=== PATIENT | male | born 1940 | race Caucasian/White ===

== ENCOUNTER → 2017-11-12 | Day surgery (SDC) | payer OTHER ==
[2017-11-06 08:02] VITALS: Ht 172.7 cm; Wt 86.4 kg
[~2017-11-12] VITALS: Ht 172.7 cm; Wt 86.4 kg
[~2017-11-12] MED LIST: 500ML BSS 0.3ML EPI 1:1000PF IRRIG ONE; ACETAMINOPHEN 325 MG TAB PO PRN; AMVISC PLUS 0.8ML SYRINGE INT OCU ONE; ASPI81TA28 PO; ATOR-22 PO; ATROPINE SULFATE 0.1 MG/ML 5ML SYR IV PRN; AcetaZOLAMIDE 250 MG TAB PO SCH; BETAXOLOL HCL 0.25% OP SUSP PER DROP CHARGE OPL SCH; BRIMONIDINE TART 0.2% OP SOLN PER DROP CHARGE ONE; BSS FLUSH ONE; DILT-113 PO; EpHEDrine SULFATE INJ 50 MG/ML AMP IV PRN; EpINEphrine INJ 1MG/ML AMP 1 MG/ML AMP ONE; LACTATED RINGER'S 1000ML 500 ML IV SCH; LIDOCAINE 4% OP SOLN DROP CHARGE ONE; LIDOCAINE 4% OP SOLN DROP CHARGE OPL SCH; LIDOCAINE HCL 1% MPF 2 ML VIAL ONE; METO5TAB2 PO; MIDAZOLAM HCL 1 MG/ML 2ML VIAL ONE; MIX: 4ML BSS 1ML EPI 1:1000 PF INSTIL ONE; MOXIFLOXACIN OPH SOLN PER DROP CHARGE ONE; NURSING VERBAL MED ORDER ONE; PHENYLEPHRINE HCL 10% OP SOLN PER DROP CHARGE OPL STA; POVIDONE-IODINE OP SOLN 30 ML BTL ONE; PRLSR20 PO; PROPARACAINE 0.5% OP SOLN PER DROP CHARGE OPL SCH; TOBRAMYCIN/DEXAMETHASONE OPH OINT PER APPLN CHARGE ONE
--- NOTE | 2017-11-12 07:24 | History & Physical Bridge - SC ---
H&P Re-Evaluation Bridge Note: I have examined the patient, reviewed the History & Physical and in the interval since the performance of the History & Physical I have noted the following changes of clinical significance: No changes noted
[2017-11-12] MEDS: PHENYLEPHRINE HCL 2.5% OP SOLN PER DROP CHARGE OPL SCH ×2 (09:24→09:29)
[2017-11-12] MEDS: TROPICAMIDE 1% OP SOLN PER DROP CHARGE OPL SCH ×2 (09:25→09:30)
[2017-11-12] MEDS: CYCLOPENTOLATE HCL 1% OP SOLN PER DROP CHARGE OPL SCH ×2 (09:26→09:31)
[2017-11-12] MEDS: MOXIFLOXACIN OPH SOLN PER DROP CHARGE OPL SCH ×2 (09:27→09:37)
--- NOTE | 2017-11-12 10:37 | [facility] Operative Report ---
Operative Report Date of Service November 12, 2017. Operative Report 1. PREOPERATIVE DIAGNOSIS: Senile nuclear cataract, left eye. 2. POSTOPERATIVE DIAGNOSIS: Senile nuclear cataract, left eye. 3. PROCEDURE: Phacoemulsification of left cataract with posterior chamber lens implant, type Bausch [employer] Lomb, model MX60E, power +21.0 diopters. ANESTHESIA: Local standby. SURGEON: Dr. Brar. COMPLICATIONS: None. OPERATING TIME: 10 minutes. 4. OPERATION AND FINDINGS: DESCRIPTION OF PROCEDURE: The left pupil was dilated. The anesthetic was administered using a topical technique. The left eye was prepped and draped. A speculum was placed. A clear corneal incision was formed. The chamber was filled with Amvisc Plus and Endocoat. Epinephrine solution was used. A paracentesis was placed. A capsulorrhexis was performed. The nucleus was hydrodissected. A dense lens was removed with phacoemulsification. Time was 7.76 seconds. The aspiration unit was used to remove the cortex. The capsule was filled with Amvisc Plus. The lens implant was folded and placed into the capsule. The incision was hydrated. The Amvisc was aspirated. The wound was secure. The chamber was deep. The pupil was round. Brimonidine, TobraDex ointment and Vigamox solution were placed. The speculum was removed. The patient was returned to the Recovery Room in stable condition. I attest to the content of the Intraoperative Record and any orders documented therein. Any exceptions are noted below. The scribe's documentation has been prepared in my presence, under my direction and personally reviewed by me in its entirety. I confirm that the note above accurately reflects all work, treatment, procedures, and medical decision making performed by me. I personally scribed for Robert Brar M.D. (MICAH) on 11/12/17 at 10:37. Electronically submitted by Nora Alonso (STEPH).
--- NOTE | 2017-11-12 10:40 | Discharge Instructions-SurgCtr ---
Discharge Instructions Date of Service November 12, 2017. Visit Reason for Visit: Cataract Left Eye Discharge Discharge Diagnosis / Problem: lens implant left eye Discharge Goals Goal(s): Improve function Activity Recommendations Activity Limitations: resume your previous activity Lifting Limitations: no more than 10 pounds Exercise/Sports Limitations: gradually increase as tolerated May Resume Sexual Activity: when tolerated Shower/Bathe: tomorrow Driving or Machine Use: resume 1 day after discharge Anesthesia . Post Anesthesia Instructions: If you have had General Anesthesia or IV Sedation: * Do not drive today. * Resume driving when surgeon permits. * Do not make important decisions or sign legal documents today. * Call surgeon for: 1. Temperature elevations greater than 101 degrees F. 2. Uncontrollable pain. 3. Excessive bleeding. 4. Persistent nausea and vomiting. 5. Medication intolerance (nausea, vomiting or rash). * For nausea and vomiting use only clear liquids such as: tea, soda, bouillon until nausea subsides, then gradually increase diet as tolerated. * If you have any concerns or questions, call your surgeon's office. If physician is unavailable and it is an emergency, call 911 or go to the nearest emergency room. . Instructions / Follow-Up Instructions / Follow-Up ACTIVITY RECOMMENDATIONS: * Light activities. * Mild irritation and blurred vision are common for the first few days. * You may walk outside, read, watch television. * Redness around the white part of the eye is common. MEDICATIONS: Resume previous medications unless instructed otherwise by your surgeon. * Take white Diamox (Acetazolamide) tablet at 1 pm today. Start all eye drops at 1 pm today: * Eye drops (today and tomorrow): Prednisone - one drop in operative eye every 3 hours while awake Ofloxacin - one drop in operative eye every 3 hours while awake SPECIAL CARE INSTRUCTIONS: * Tape plastic shield over eye to sleep at night. Call your doctor at with any concerns or problems. FOLLOW UP VISIT: Follow-up with Dr Brar at [facility] as scheduled. Diet Recommendations Home Diet: no limitations Procedures Procedures Performed: Left Cataract Phacoemulsification With Intraocular Lens Implant Pending Studies Studies pending at discharge: no Medical Emergencies . Who to Call and When: Medical Emergencies: If at any time you feel your situation is an emergency, please call 911 immediately. . Non-Emergent Contact Non-Emergency issues call your: Radio Repairman Call Non-Emergent contact if: your pain is not controlled [phone] . . "Provider Documentation" section prepared by Robert Brar. .
[2017-11-12 10:41] VITALS: TEMP 36.3
[2017-11-12 11:14] VITALS: BP 130/83; PULSE 67; O2SAT 95
--- NOTE | 2017-11-12 11:19 | Anesthesia Progress Nt - [facility] ---
Anesthesia Post Op Note Date & Time November 12, 2017 at 11:18 Vital Signs Pain Intensity: 3.0 Vital Signs Past 12 Hours Date Time Temp Pulse Resp B/P (MAP) Pulse Ox O2 Delivery O2 Flow Rate FiO2 11/12/17 11:14 67 18 130/83 (99) 95 Room Air 11/12/17 10:41 36.3 60 18 118/69 (85) 95 Room Air 11/12/17 09:25 36.7 60 12 169/73 (105) 95 Room Air Notes Mental Status: alert / awake / arousable, participated in evaluation Pt Amnestic to Procedure: Yes Nausea / Vomiting: adequately controlled Pain: adequately controlled Airway Patency, RR, SpO2: stable & adequate BP & HR: stable & adequate Hydration State: stable & adequate Anesthetic Complications: no major complications apparent
== END | disposition home or self-care (01) ==
LOC: X.SURG 08:35
PROVIDERS: ATTEND Specialist
DX: H25.12 Age-related nuclear cataract, left eye (principal); Z79.82 Long term (current) use of aspirin; Z79.899 Other long term (current) drug therapy; E66.9 Obesity, unspecified; Z68.34 Body mass index [BMI] 34.0-34.9, adult; E78.5 Hyperlipidemia, unspecified; Z95.0 Presence of cardiac pacemaker

== ENCOUNTER → 2017-11-26 | Day surgery (SDC) | payer OTHER ==
[2017-11-21 08:45] VITALS: Ht 172.7 cm; Wt 86.4 kg
[~2017-11-26] VITALS: Ht 172.7 cm; Wt 86.4 kg
[~2017-11-26] MED LIST changes: -BETAXOLOL HCL 0.25% OP SUSP PER DROP CHARGE OPL SCH; +BETAXOLOL HCL 0.25% OP SUSP PER DROP CHARGE OPR SCH; +ENDOCOAT 0.85ML SYRINGE INT OCU ONE; -EpHEDrine SULFATE INJ 50 MG/ML AMP IV PRN; -LIDOCAINE 4% OP SOLN DROP CHARGE OPL SCH; +LIDOCAINE 4% OP SOLN DROP CHARGE OPR SCH; -NURSING VERBAL MED ORDER ONE; -PHENYLEPHRINE HCL 10% OP SOLN PER DROP CHARGE OPL STA; -PROPARACAINE 0.5% OP SOLN PER DROP CHARGE OPL SCH; +PROPARACAINE 0.5% OP SOLN PER DROP CHARGE OPR SCH
[2017-11-26] MEDS: PHENYLEPHRINE HCL 2.5% OP SOLN PER DROP CHARGE OPR SCH ×2 (06:46→06:51)
[2017-11-26] MEDS: TROPICAMIDE 1% OP SOLN PER DROP CHARGE OPR SCH ×2 (06:47→06:52)
[2017-11-26] MEDS: CYCLOPENTOLATE HCL 1% OP SOLN PER DROP CHARGE OPR SCH ×2 (06:48→06:53)
[2017-11-26] MEDS: MOXIFLOXACIN OPH SOLN PER DROP CHARGE OPR SCH ×2 (06:49→06:59)
--- NOTE | 2017-11-26 08:05 | [facility] Operative Report ---
Operative Report Date of Service November 26, 2017. Operative Report 1. PREOPERATIVE DIAGNOSIS: Senile nuclear cataract, right eye. 2. POSTOPERATIVE DIAGNOSIS: Senile nuclear cataract, right eye. 3. PROCEDURE: Phacoemulsification of right cataract with posterior chamber lens implant, type Bausch [employer] Lomb, model MX60E, power +21.5 diopters. ANESTHESIA: Local standby. SURGEON: Dr. Brar. COMPLICATIONS: None. OPERATING TIME: 10 minutes. 4. OPERATION AND FINDINGS: DESCRIPTION OF PROCEDURE: The right pupil was dilated. The anesthetic was administered using a topical technique. The right eye was prepped and draped. A speculum was placed. A clear corneal incision was formed. The chamber was filled with Amvisc Plus and Endocoat. Epinephrine solution was used. A paracentesis was placed. A capsulorrhexis was performed. The nucleus was hydrodissected. The lens was removed with phacoemulsification. Time was 5.08 seconds. The aspiration unit was used to remove the cortex. The capsule was filled with Amvisc Plus. The lens implant was folded and placed into the capsule. The incision was hydrated. The Amvisc was aspirated. The wound was secure. The chamber was deep. The pupil was round. Brimonidine, TobraDex ointment and Vigamox solution were placed. The speculum was removed. The patient was returned to the Recovery Room in stable condition. I attest to the content of the Intraoperative Record and any orders documented therein. Any exceptions are noted below. The scribe's documentation has been prepared in my presence, under my direction and personally reviewed by me in its entirety. I confirm that the note above accurately reflects all work, treatment, procedures, and medical decision making performed by me. I personally scribed for Robert Brar M.D. (MICAH) on 11/26/17 at 08:05. Electronically submitted by Nora Alonso (STEPH).
--- NOTE | 2017-11-26 08:07 | Discharge Instructions-SurgCtr ---
Discharge Instructions Date of Service November 26, 2017. Visit Reason for Visit: Right Cataract Discharge Discharge Diagnosis / Problem: lens implant right eye Discharge Goals Goal(s): Improve function Activity Recommendations Activity Limitations: resume your previous activity Lifting Limitations: no more than 10 pounds Exercise/Sports Limitations: gradually increase as tolerated May Resume Sexual Activity: when tolerated Shower/Bathe: tomorrow Driving or Machine Use: resume 1 day after discharge Anesthesia . Post Anesthesia Instructions: If you have had General Anesthesia or IV Sedation: * Do not drive today. * Resume driving when surgeon permits. * Do not make important decisions or sign legal documents today. * Call surgeon for: 1. Temperature elevations greater than 101 degrees F. 2. Uncontrollable pain. 3. Excessive bleeding. 4. Persistent nausea and vomiting. 5. Medication intolerance (nausea, vomiting or rash). * For nausea and vomiting use only clear liquids such as: tea, soda, bouillon until nausea subsides, then gradually increase diet as tolerated. * If you have any concerns or questions, call your surgeon's office. If physician is unavailable and it is an emergency, call 911 or go to the nearest emergency room. . Instructions / Follow-Up Instructions / Follow-Up ACTIVITY RECOMMENDATIONS: * Light activities. * Mild irritation and blurred vision are common for the first few days. * You may walk outside, read, watch television. * Redness around the white part of the eye is common. MEDICATIONS: Resume previous medications unless instructed otherwise by your surgeon. * Take white Diamox (Acetazolamide) tablet at 1 pm today. Start all eye drops at 1 pm today: * Eye drops (today and tomorrow): Prednisone - one drop in operative eye every 3 hours while awake Ofloxacin - one drop in operative eye every 3 hours while awake SPECIAL CARE INSTRUCTIONS: * Tape plastic shield over eye to sleep at night. Call your doctor at with any concerns or problems. FOLLOW UP VISIT: Follow-up with Dr Brar at [place] office as scheduled. Diet Recommendations Home Diet: no limitations Procedures Procedures Performed: Right Cataract Phacoemulsification With Intraocular Lens Implant Pending Studies Studies pending at discharge: no Medical Emergencies . Who to Call and When: Medical Emergencies: If at any time you feel your situation is an emergency, please call 911 immediately. . Non-Emergent Contact Non-Emergency issues call your: Missile Inspector [employer]light Call Non-Emergent contact if: your pain is not controlled [phone] . . "Provider Documentation" section prepared by Robert Brar. .
[2017-11-26 08:09] VITALS: TEMP 36.2
--- NOTE | 2017-11-26 08:21 | Anesthesia Progress Nt - [facility] ---
Anesthesia Post Op Note Date & Time November 26, 2017 at 08:21 Vital Signs Pain Intensity: 3.0 Vital Signs Past 12 Hours Date Time Temp Pulse Resp B/P (MAP) Pulse Ox O2 Delivery O2 Flow Rate FiO2 11/26/17 08:09 36.2 60 20 126/83 (97) 97 Room Air 11/26/17 06:36 36.5 80 20 136/85 (102) 95 Room Air Notes Mental Status: alert / awake / arousable, participated in evaluation Pt Amnestic to Procedure: Yes Nausea / Vomiting: adequately controlled Pain: adequately controlled Airway Patency, RR, SpO2: stable & adequate BP & HR: stable & adequate Hydration State: stable & adequate Anesthetic Complications: no major complications apparent
[2017-11-26 08:29] VITALS: BP 126/82; PULSE 72; O2SAT 96
== END | disposition home or self-care (01) ==
LOC: X.SURG 06:24
PROVIDERS: ATTEND Specialist
DX: H25.11 Age-related nuclear cataract, right eye (principal); I51.9 Heart disease, unspecified

== ENCOUNTER 2018-02-18 01:41 | Inpatient (IN) | payer OTHER ==
[~2018-02-18] VITALS: Ht 172.7 cm; Wt 84.9 kg
[2018-02-18] VITALS (9 sets, daily range): BP systolic 127–169; BP diastolic 56–98; PULSE 60–63; TEMP 36.5–36.9; O2SAT 93–98; Ht 172.7 cm; Wt 84.9 kg
[~2018-02-18 01:41] MED LIST changes: -500ML BSS 0.3ML EPI 1:1000PF IRRIG ONE; -ACETAMINOPHEN 325 MG TAB PO PRN; -AMVISC PLUS 0.8ML SYRINGE INT OCU ONE; -ATROPINE SULFATE 0.1 MG/ML 5ML SYR IV PRN; -AcetaZOLAMIDE 250 MG TAB PO SCH; -BETAXOLOL HCL 0.25% OP SUSP PER DROP CHARGE OPR SCH; -BRIMONIDINE TART 0.2% OP SOLN PER DROP CHARGE ONE; -BSS FLUSH ONE; -ENDOCOAT 0.85ML SYRINGE INT OCU ONE; -EpINEphrine INJ 1MG/ML AMP 1 MG/ML AMP ONE; -LACTATED RINGER'S 1000ML 500 ML IV SCH; -LIDOCAINE 4% OP SOLN DROP CHARGE ONE; -LIDOCAINE 4% OP SOLN DROP CHARGE OPR SCH; -LIDOCAINE HCL 1% MPF 2 ML VIAL ONE; -MIDAZOLAM HCL 1 MG/ML 2ML VIAL ONE; -MIX: 4ML BSS 1ML EPI 1:1000 PF INSTIL ONE; -MOXIFLOXACIN OPH SOLN PER DROP CHARGE ONE; -POVIDONE-IODINE OP SOLN 30 ML BTL ONE; -PROPARACAINE 0.5% OP SOLN PER DROP CHARGE OPR SCH; -TOBRAMYCIN/DEXAMETHASONE OPH OINT PER APPLN CHARGE ONE
[2018-02-18] MEDS ORDERED: SODIUM CHLORIDE 0.9% 1000ML 1,000 ML IV STA (02:02)
[2018-02-18] MEDS ORDERED: FENTANYL CITRATE INJ 50 MCG/1 ML 2 ML VIAL IV STA (02:02)
[2018-02-18] MEDS ORDERED: ONDANSETRON INJ 2 MG/ML 2 ML VIAL IV STA (02:02)
--- NOTE | 2018-02-18 02:10 | EMERGENCY ROOM VISIT NOTE ---
History Report prepared by Sofia: Subhash Tabares Under the Supervision of: Dr. Mike Simpson M.D. First contact with patient: 01:53 Chief Complaint: ABDOMINAL PAIN Stated Complaint: PAIN IN STOMACH,VOMITING Nursing Triage Summary: patient reports abdominal pain that started tonight with nausea and vomiting History of Present Illness The patient is a 78 year old male who presents to the Emergency Room with complaints of worsening, sharp, lower abdominal pain beginning 6 hours ago. The patient states his symptoms started this evening after eating dinner. He reports he feels very warm. The patient notes he became nauseous and vomited up his supper. He states he tried taking TUMs, but it did not help him. The patient reports his pain does not radiate to his back. He notes he has a history of a pacemaker and takes aspirin daily. 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 He denies a history of pain this bad before, a history of pancreatitis, consuming alcohol, abdominal surgeries, chest pain, shortness of breath, trouble moving his bowels or urinating, leg swelling, a history of kidney trouble, taking Coumadin, recent falls, LOC, headache, a history of an VT, drug use, and recent tick bites. Source of History: patient Onset: 6 hours ago Position: abdomen (lower) Quality: sharp Timing: worsening Associated Symptoms: + nausea, + vomiting, No LOC, No headache, No chest pain, No SOB, No urinary symptoms Note: Associated symptoms: feeling warm Denies: recent tick bites, recent falls, leg swelling, trouble moving bowels, Review of Systems See HPI for pertinent positives & negatives. A total of 10 systems reviewed and were otherwise negative. Past Medical & Surgical Medical Problems: (1) Cholecystitis (2) CKD (chronic kidney disease) stage 3, GFR 30-59 ml/min (3) Elevated LFTs (4) Gastroparesis (5) GERD (gastroesophageal reflux disease) (6) Pacemaker (7) SSS (sick sinus syndrome) Surgical Problems: (1) S/P cholecystectomy Family History Diabetes mellitus Social History Smoking Status: Never Smoker Alcohol Use: none Drug Use: none Marital Status: Housing Status: lives with family Occupation Status: retired Current/Historical Medications Scheduled Aspirin (Aspirin Ec), 81 MG PO QAM Atorvastatin (Lipitor), 20 MG PO HS Diltiazem Hcl Ext Rel (Tiazac), 180 MG PO QAM Metoclopramide Hcl (Metoclopramide Hcl), 1 TAB PO DAILY AFTERNOON Omeprazole (Prilosec), 20 MG PO QAM Allergies Coded Allergies: BEE STING (Unverified Allergy, Unknown, HIVES, 02/18/18) Oxycodone (Unverified Adverse Reaction, Severe, URINE RETENTION, 02/18/18) Physical Exam Vital Signs Date Time Temp Pulse Resp B/P (MAP) Pulse Ox O2 Delivery O2 Flow Rate FiO2 02/18/18 04:37 65 20 148/90 98 Room Air 02/18/18 03:02 60 18 137/100 95 Room Air 02/18/18 01:45 36.7 65 18 178/81 95 Room Air Physical Exam GENERAL: Patient is uncomfortable appearing and in moderate distress. EYES: No scleral icterus, unremarkable pupils. ENT: Mucous membranes moist, no nasal congestion. NECK: No masses appreciated, no meningismus, trachea is midline. RESPIRATORY: No dyspnea. Clear to auscultation and equal bilaterally. No wheeze , no rhonchi. CARDIOVASCULAR: Regular rate and rhythm. No murmurs, rubs, gallops appreciated. GASTROINTESTINAL: Abdomen soft, periumbilical tenderness to palpation, no peritonitis. Bowel sounds positive. No masses appreciated. BACK: No midline tenderness, no CVA tenderness EXTREMITIES: Normal motion all extremities, no cyanosis, no edema. NEUROLOGIC: Alert and oriented, no acute motor or sensory deficits, no focal weakness, cranial nerves grossly intact. SKIN: No rash, no jaundice, no diaphoresis. Medical Decision & Procedures ER Provider Diagnostic Interpretation: Stat Rad Radiology results and stated below per my review and radiologist interpretation: CT ABDOMEN & PELVIS With Contrast: Cholelithiasis with possible slight gallbladder wall thickening. If there is concern for cholecystitis, ultrasound evaluation may be beneficial. Colonic diverticulosis. Mild wall thickening at the sigmoid level though without evidence for pericolonic inflammatory changes, possibly related to chronic diverticulosis and/or peristalsis. No definitive evidence for acute diverticulitis. There is also slight wall thickening at the splenic flexure favored to be related to contraction. There is no evidence for bowel obstruction. There is no evidence for appendicitis. No evidence for obstructive uropathy. Small hiatal hernia. Mild atherosclerosis. Small fatty left inguinal hernia. Radiologist: Jaswinder Chavez MD Laboratory Results Test 02/18/18 02:33 02/18/18 02:54 02/18/18 03:00 Lipase 96 U/L (73-393) Bedside Hemoglobin 15.3 g/dl (14.0-18.0) Bedside Hematocrit 45 % (42-52) Bedside Sodium 141 mEq/L (135-144) Bedside Potassium 4.1 mEq/L (3.3-5.0) Bedside Chloride 101 mEq/L (101-112) Bedside Total CO2 27 mEq/l (24-31) Bedside Blood Urea Nitrogen 21 mg/dl (7-18) Bedside Creatinine 1.3 mg/dl (0.6-1.3) Bedside Glucose (other) 199 mg/dl (70-99) Bedside Ionized Calcium (Courtney) 1.15 mmol/l (1.12-1.32) Urine Color DK YELLOW Urine Appearance CLEAR (CLEAR) Urine pH 5.0 (4.5-7.5) Urine Specific Edison 1.023 (1.000-1.030) Urine Protein TRACE (NEG) Urine Glucose (UA) 1+ (NEG) Urine Ketones NEG (NEG) Urine Occult Blood TRACE (NEG) Urine Nitrite NEG (NEG) Urine Bilirubin 1+ (NEG) Urine Urobilinogen POS (NEG) Urine Leukocyte Esterase NEG (NEG) Urine WBC (Auto) 1-5 /hpf (0-5) Urine RBC (Auto) 0-4 /hpf (0-4) Urine Hyaline Casts (Auto) 0 /lpf (0-5) Urine Epithelial Cells (Auto) 5-10 /lpf (0-5) Urine Bacteria (Auto) NEG (NEG) Laboratory results as reviewed by me. Medications Administered Medications (Trade) Dose Ordered Sig/Madeleine Route Start Time Stop Time Status Last Admin Dose Admin Sodium Chloride 1,000 ml @ 999 mls/hr Q1H1M STAT IV 02/18/18 02:02 02/18/18 03:02 DC 02/18/18 02:58 999 MLS/HR Fentanyl Citrate (Fentanyl Inj) 75 mcg NOW STAT IV 02/18/18 02:02 02/18/18 02:04 DC 02/18/18 02:57 75 MCG Ondansetron HCl (Zofran Inj) 4 mg NOW STAT IV 02/18/18 02:02 02/18/18 02:04 DC 02/18/18 02:56 4 MG Cefoxitin Sodium (Mefoxin 2000mg/ 60 ml D5W) 2,000 mg NOW STAT IV 02/18/18 04:35 02/18/18 04:36 DC 02/18/18 04:35 2,000 MG ED Course 0158: The patient was evaluated in room C01B. A complete history and physical exam was performed. Medical Decision Differential: Cholecystitis, Gallbladder disfunction, Hepatic Disfunction, Gastritis/PUD, Pancreatitis, ACS, Aortic Pathology, amongst other pathologies entertained. 78 yr old male arrives with acute tre-umbical pain. No peritonitis by exam but is uncomfortable during it. Labs with elevated LFTs and CT with concern acute cholecystitis. Given IV mefoxin for abx coverage. No chest pain, shob, nor other complaints. Patient comfortable with Fent/Zofran. Discussed with hospitalists who will further manage treatment/evaluation. Medication Reconcilliation Current Medication List: was personally reviewed by me Blood Pressure Screening Patient's blood pressure: Elevated blood pressure Blood pressure disposition: Elevated BP felt to be situational Impression Primary Impression: Acute cholecystitis Scribe Attestation The scribe's documentation has been prepared under my direction and personally reviewed by me in its entirety. I confirm that the note above accurately reflects all work, treatment, procedures, and medical decision making performed by me. Departure Information Referrals Lance Coppola M.D. (PCP) Patient Instructions My [facility]
[2018-02-18 02:56] LABS: BASO % 0.2 %; BASO ABS # 0.01 K/uL (0-0.2); EOS % 1.1 %; EOS ABS # 0.06 K/uL (0-0.5); HEMATOCRIT 42.8 % (42-52); HEMOGLOBIN 15.4 g/dL (14.0-18.0); IG# 0.01 K/uL (0.00-0.02); LYMPH % 15.9 %; LYMPH ABS # 0.86 K/uL (1.2-3.4); MEAN CORPUSCULAR HEMOGLOBIN 33.5 pg (25-34); MEAN PLATELET VOLUME 8.3 fL (7.4-10.4); MONO % 8.3 %; MONO ABS # 0.45 K/uL (0.11-0.59); NEUT % 74.3 %; NEUT ABS # 4.01 K/uL (1.4-6.5); PLATELET COUNT 159 K/uL (130-400); RED CELL DISTRIBUTION WIDTH CV 12.6 % (11.5-14.5); RED CELL DISTRIBUTION WIDTH SD 42.3 fL (36.4-46.3)
[2018-02-18 03:17] LABS: ALBUMIN 4.1 gm/dl (3.4-5.0); CALCIUM 8.9 mg/dl (8.5-10.1); CREATININE 1.45 mg/dl (0.60-1.40); TOTAL PROTEIN 8.3 gm/dl (6.4-8.2)
[2018-02-18 03:33] LABS: ISTAT CREATININE 1.3 mg/dl (0.6-1.3); ISTAT IONIZED CALCIUM 1.15 mmol/l (1.12-1.32); ISTAT POTASSIUM 4.1 mEq/L (3.3-5.0)
[2018-02-18] MEDS ORDERED: OPTIRAY 320 IV PRN (03:45)
[2018-02-18] MEDS ORDERED: CEFOXITIN 2000MG/60 ML D5W IV STA (04:35)
[2018-02-18] MEDS ORDERED: ALUMINUM/MAGNESIUM/SIMETH (MAALOX MAX) 30 ML UDC PO PRN (05:30)
[2018-02-18] MEDS ORDERED: POLYETHYLENE (MIRALAX) 17 GM PACK PO PRN (05:30)
[2018-02-18] MEDS ORDERED: MoRPHine SULFATE 4 MG/ML 1 ML CARP\\VIAL IV PRN ×2 (05:30→14:45)
[2018-02-18] MEDS ORDERED: ONDANSETRON INJ 2 MG/ML 2 ML VIAL IV PRN ×2 (05:30→12:00)
--- NOTE | 2018-02-18 06:49 | DIAGNOSTIC IMAGING REPORT ---
ABDOMINAL ULTRASOUND, RIGHT UPPER QUADRANT HISTORY: Right upper quadrant pain. Possible common bile duct stone. COMPARISON: CT of the abdomen and pelvis February 18, 2018. FINDINGS: Liver morphology is normal. No hepatic lesions are evident. There is no biliary ductal dilatation. Common bile duct measures 4 mm in caliber. No common bile duct calculi are identified although the distal common bile duct is obscured. The pancreas is secured by overlying bowel gas. The gallbladder is filled with gallstones. Gallbladder wall is mildly thickened, measuring 4 mm. There is trace pericholecystic fluid. No sonographic Elam sign was elicited although pain medication was administered. There is no right hydronephrosis. IMPRESSION: 1. No biliary ductal dilatation. No common bile duct calculi identified although distal common bile duct obscured. 2. Gallbladder filled with gallstones with mild gallbladder wall thickening and trace pericholecystic fluid. The findings could reflect acute or chronic cholecystitis. A hepatobiliary scan could be obtained if suspicion for acute cholecystitis. Electronically signed by: Giuliano Coello M.D. 02/18/2018 6:47 AM Dictated Date/Time: 02/18/2018 6:44 AM
--- NOTE | 2018-02-18 06:54 | DIAGNOSTIC IMAGING REPORT ---
CT OF THE ABDOMEN AND PELVIS WITH CONTRAST CLINICAL HISTORY: Periumbilical pain and vomiting. COMPARISON STUDY: None. TECHNIQUE: Following IV administration of 91 mL of Optiray-320, axial images of the abdomen and pelvis were obtained from the lung bases to the proximal femurs. Images were reviewed in the axial, sagittal, and coronal planes. IV contrast was administered without complication. A dose lowering technique was utilized adhering to the principles of ALARA. CT DOSE: 345.89 mGy.cm FINDINGS: Heart is moderately enlarged. Pacer leads are partially imaged. A hernia is noted. No hepatic lesions are present. No intra or extrahepatic biliary ductal dilatation is present. The spleen, adrenal glands, kidneys and pancreas are unremarkable. The gallbladder is filled with gallstones. Note is made of probable mild gallbladder wall thickening with trace pericholecystic infiltration. The gallbladder is not distended. There is no evidence for a bowel obstruction. The appendix is normal. Note is made of colonic diverticulosis without evidence for acute diverticulitis. No lymphadenopathy or ascites is present. Fat-containing left inguinal hernia is noted. There are no suspicious osseous lesions. IMPRESSION: 1. Cholelithiasis with suspected mild gallbladder wall thickening and trace pericholecystic infiltration. The findings raise the possibility of acute cholecystitis and a hepatobiliary scan could be obtained as indicated. 2. No biliary ductal dilatation. 3. Small hiatal hernia. 4. Normal appendix. No bowel obstruction. Electronically signed by: Giuliano Coello M.D. 02/18/2018 6:52 AM Dictated Date/Time: 02/18/2018 6:48 AM
[2018-02-18] MEDS: D5W AND NSS 1,000 ML IV SCH ×2 (06:56→17:32)
[2018-02-18 07:20] LABS: BASO % 0.2 %; BASO ABS # 0.01 K/uL (0-0.2); EOS % 0.5 %; EOS ABS # 0.03 K/uL (0-0.5); HEMATOCRIT 41.2 % (42-52); HEMOGLOBIN 14.6 g/dL (14.0-18.0); IG# 0.01 K/uL (0.00-0.02); LYMPH % 20.9 %; LYMPH ABS # 1.17 K/uL (1.2-3.4); MEAN CELL VOLUME 92.8 fL (80-100); MEAN CORPUSCULAR HEMOGLOBIN 32.9 pg (25-34); MEAN CORPUSCULAR HGB CONC 35.4 g/dl (32-36); MEAN PLATELET VOLUME 7.8 fL (7.4-10.4); MONO % 8.7 %; MONO ABS # 0.49 K/uL (0.11-0.59); NEUT % 69.5 %; PLATELET COUNT 161 K/uL (130-400); RED CELL DISTRIBUTION WIDTH CV 12.5 % (11.5-14.5); RED CELL DISTRIBUTION WIDTH SD 42.5 fL (36.4-46.3); WHITE BLOOD COUNT 5.61 K/uL (4.8-10.8)
[2018-02-18 07:55] LABS: ALBUMIN 3.7 gm/dl (3.4-5.0); TOTAL PROTEIN 7.6 gm/dl (6.4-8.2)
--- NOTE | 2018-02-18 08:00 | HISTORY & PHYSICAL EXAMINATION ---
DATE OF ADMISSION: 02/18/2018 CHIEF COMPLAINT: Abdominal pain. HISTORY OF PRESENT ILLNESS: This 78-year-old male with past medical history significant for allergic rhinitis, GERD, hemorrhoids, paroxysmal atrial fibrillation, sick sinus syndrome, status post pacemaker, diastolic dysfunction, BPH, chronic kidney disease stage 3, hyperlipidemia who presents with abdominal pain. The patient has a history of esophageal gastroparesis and he takes omeprazole and Reglan, but last night after eating his dinner, went to sleep and noticed belly pain in the periumbilical region. He thought it will go away, but it progressively got worse about 9/10 in severity, no radiation, associated with nausea and vomiting, which prompted to come to the ER. In the ER, CAT scan was done which shows cholecystitis and also elevated LFTs. Currently after some pain medication, the patient says his pain is about 2/10 in severity, resting comfortable and hemodynamically stable.Says he felt hot, but he was afebrile in the ER, he has chronically irregular bowel movements, but denies any blood in the stools. Normal bladder movements. No blood in the urine. Has mild headaches. No blurred visions. Recently had cataract surgery. Hard to hear. No earaches. No runny nose, no sore throat, no difficulty swallowing. No chest pain, no shortness of breath, no cough. Otherwise, he is very active. He is a altamirano and always active with no issues with walking or climbing steps. ALLERGIES: BEE STING, OXYCODONE. PAST MEDICAL HISTORY: As mentioned above. PAST SURGICAL HISTORY: Colonoscopy, lymph node biopsy, pacemaker placement, tonsillectomy, right shoulder surgery. MEDICATIONS: The patient is on aspirin 81 mg p.o. daily, Lipitor 20 mg p.o. daily, Reglan 5 mg as needed, omeprazole 20 mg p.o. daily, diltiazem extended release 180 mg p.o. daily. FAMILY HISTORY: Significant for father who had a stroke. Brother has diabetes. Sister had IA at age of 40. SOCIAL HISTORY: . No smoking history. No alcohol, no drug use. Lives with his . REVIEW OF SYMPTOMS: As per HPI. Rest of the symptoms negative. PHYSICAL EXAMINATION: GENERAL: The patient is of moderate build, not in distress. VITAL SIGNS: Temperature 36.7, pulse 65, respiratory rate 20, blood pressure 148/90, oxygen 98% room air. HEENT: No pallor, no icterus. Pupils equal, round, and react to light. NECK: No JVD, no neck masses, no carotid bruits. CARDIOVASCULAR: S1, S2 heard, regular rate and rhythm, no murmur, no gallop. RESPIRATORY SYSTEM: Clear to auscultation bilaterally. No wheezing, no crackles. ABDOMEN: Soft, bowel sounds present. Mild tenderness in the periumbilical region. No guarding, no rigidity. No distention. CENTRAL NERVOUS SYSTEM: Cranial nerves are grossly intact. Nonfocal. EXTREMITIES: No edema, no erythema. LABORATORIES: Sodium 135, potassium 4, chloride 103, bicarbonate 26, BUN 21, creatinine 1.4, serum glucose 186, calcium 8.9, total bilirubin 2.5, direct bilirubin 1.6, AST 182, ALT 806, alkaline phosphatase is 138, lipase 96. WBC 5.4, hemoglobin 15.4, hematocrit 42.8, platelets 159. Urinalysis, trace occult blood. CT of abdomen and pelvis unofficial report cholecystitis. ASSESSMENT AND PLAN: This 78-year-old male presents with abdominal pain. 1. Abdominal pain. CAT scan showing cholecystitis and also has elevated LFTs.Possible common bile duct stone. We will get an ultrasound of the gallbladder. Empirically start him on IV Cipro and IV Flagyl, IV fluids, IV antiemetics and pain medications p.r.n. Hemodynamically stable. Consult GI and surgery. MRCP, ERCP as per GI. Follow the LFTs. 2. History of atrial fibrillation, rate controlled with Cardizem. Not on anticoagulation because of history of GI bleed in the past and patient preference as per records.Takes baby aspirin which will be held for possible procedures. We will monitor his heart rate. 3. History of gastroparesis, on Reglan and Prilosec. Currently, hold Reglan, place him IV Protonix. 4. Hyperlipidemia, on statin. 5. Sick sinus syndrome, status post pacemaker. 6. LATASHA on Chronic kidney disease stage III, baseline creatinine of 1.2 to 1.3. Presented with 1.4. We will follow the labs. 7. Deep venous thrombosis prophylaxis, SCDs for now. 8. Disposition: Admit to medical floor. Expect to discharge home and follow with family doctor. Level 1 full code. MTDD
[2018-02-18] MEDS: DILTIAZEM HCL (TIAzac) 180 MG CAPCR PO SCH (08:20)
[2018-02-18] MEDS: METRONIDAZOLE / NSS 500 MG in PREMIXED NSS 100 ML IV SCH ×3 (08:21→23:50)
[2018-02-18] MEDS: CIPROFLOXACIN / D5W 400 MG in PREMIXED IN D5W 200 ML IV SCH ×2 (09:31→21:43)
--- NOTE | 2018-02-18 10:54 | Medical Consult ---
Consultation Date of Consultation: Feb 18, 2018. Attending Physician: Maida Delong M.D. History of Present Illness 78 y/o male with years of "indigestion" with more severe and constant epigastric pain last evening after eating ham pot pie for dinner. Had nausea and vomiting. Came to the ER when pain did not subside after several hours. Feels better this morning after medicated, N/V resolved. No previous abdominal surgery. Past Medical/Surgical History Medical Problems: (1) CKD (chronic kidney disease) stage 3, GFR 30-59 ml/min (2) Gastroparesis (3) GERD (gastroesophageal reflux disease) (4) Pacemaker (5) SSS (sick sinus syndrome) Family History Diabetes mellitus Social History Smoking Status: Never Smoker Drug Use: none Marital Status: Housing Status: lives with family Occupation Status: retired Allergies Coded Allergies: BEE STING (Unverified Allergy, Unknown, HIVES, 02/18/18) Oxycodone (Unverified Adverse Reaction, Severe, URINE RETENTION, 02/18/18) Current Inpatient Medications Current Inpatient Medications Medications (Trade) Dose Ordered Sig/Madeleine Route Start Time Stop Time Status Last Admin Dose Admin Ioversol (Optiray 320) 100 ml UD PRN IV 02/18/18 03:45 02/22/18 03:44 Acetaminophen (Tylenol Tab) 650 mg Q4H PRN PO 02/18/18 05:30 03/20/18 05:29 Al Hydrox/Mg Hydrox/Simethicone (Maalox Max Susp) 15 ml Q4H PRN PO 02/18/18 05:30 03/20/18 05:29 Polyethylene (Miralax Powder Packet) 17 gm DAILY PRN PO 02/18/18 05:30 03/20/18 05:29 Ondansetron HCl (Zofran Inj) 4 mg Q6H PRN IV 02/18/18 05:30 03/20/18 05:29 Diltiazem HCl (TIAzac CAP) 180 mg QAM PO 02/18/18 09:00 03/20/18 08:59 02/18/18 08:20 180 MG Dextrose/Sodium Chloride 1,000 ml @ 100 mls/hr Q10H IV 02/18/18 05:30 03/20/18 05:29 02/18/18 06:56 100 MLS/HR Ciprofloxacin/ Dextrose 400 mg/ Prmx 200 ml @ 100 mls/hr Q12H IV 02/18/18 07:00 02/28/18 05:29 02/18/18 09:31 100 MLS/HR Metronidazole 500 mg/Prmx 100 ml @ 100 mls/hr Q8H IV 02/18/18 07:00 02/28/18 05:59 02/18/18 08:21 100 MLS/HR Morphine Sulfate (MoRPHine SULFATE INJ) 3 mg Q3HWA PRN IV 02/18/18 05:30 03/04/18 05:29 Pantoprazole Sodium 40 mg/ Syringe 10 ml @ 5 mls/min DAILY@11 IV 02/18/18 11:00 03/20/18 10:59 Review of Systems Constitutional: No fever, No chills Abdomen: + pain, + nausea, + vomiting Physical Exam Date Time Temp Pulse Resp B/P (MAP) Pulse Ox O2 Delivery O2 Flow Rate FiO2 02/18/18 09:20 95 Room Air 02/18/18 07:30 36.5 62 18 166/88 (114) 95 Room Air 02/18/18 06:24 36.9 63 20 169/98 96 Room Air 02/18/18 04:37 65 20 148/90 98 Room Air 02/18/18 03:02 60 18 137/100 95 Room Air 02/18/18 01:45 36.7 65 18 178/81 95 Room Air General Appearance: WD/WN, no apparent distress Respiratory/Chest: lungs clear, normal breath sounds Cardiovascular: regular rate, rhythm, no edema Abdomen/GI: soft, + tenderness (mild epigastric/RUQ), + hernia (small umbilical ) Neurologic/Psych: alert, oriented x 3 Skin: normal color, warm/dry Laboratory Results Last 24 Hours Test 02/18/18 02:33 02/18/18 02:54 02/18/18 03:00 02/18/18 07:05 White Blood Count 5.40 K/uL 5.61 K/uL Red Blood Count 4.60 M/uL 4.44 M/uL Hemoglobin 15.4 g/dL 14.6 g/dL Hematocrit 42.8 % 41.2 % Mean Corpuscular Volume 93.0 fL 92.8 fL Mean Corpuscular Hemoglobin 33.5 pg 32.9 pg Mean Corpuscular Hemoglobin Concent 36.0 g/dl 35.4 g/dl Platelet Count 159 K/uL 161 K/uL Mean Platelet Volume 8.3 fL 7.8 fL Neutrophils (%) (Auto) 74.3 % 69.5 % Lymphocytes (%) (Auto) 15.9 % 20.9 % Monocytes (%) (Auto) 8.3 % 8.7 % Eosinophils (%) (Auto) 1.1 % 0.5 % Basophils (%) (Auto) 0.2 % 0.2 % Neutrophils # (Auto) 4.01 K/uL 3.90 K/uL Lymphocytes # (Auto) 0.86 K/uL 1.17 K/uL Monocytes # (Auto) 0.45 K/uL 0.49 K/uL Eosinophils # (Auto) 0.06 K/uL 0.03 K/uL Basophils # (Auto) 0.01 K/uL 0.01 K/uL RDW Standard Deviation 42.3 fL 42.5 fL RDW Coefficient of Variation 12.6 % 12.5 % Immature Granulocyte % (Auto) 0.2 % 0.2 % Immature Granulocyte # (Auto) 0.01 K/uL 0.01 K/uL Sodium Level 135 mmol/L Potassium Level 4.0 mmol/L Chloride Level 103 mmol/L Carbon Dioxide Level 26 mmol/L Anion Gap 6.0 mmol/L 18.0 mmol/L Blood Urea Nitrogen 21 mg/dl Creatinine 1.45 mg/dl Est Creatinine Clear Calc Drug Dose 44.5 ml/min Estimated GFR () 53.1 Estimated GFR (Non- 45.8 BUN/Creatinine Ratio 14.1 Random Glucose 186 mg/dl Calcium Level 8.9 mg/dl Total Bilirubin 2.5 mg/dl 1.6 mg/dl Direct Bilirubin 1.6 mg/dl 0.7 mg/dl Aspartate Amino Transf (AST/SGOT) 782 U/L 554 U/L Alanine Aminotransferase (ALT/SGPT) 806 U/L 752 U/L Alkaline Phosphatase 138 U/L 134 U/L Total Protein 8.3 gm/dl 7.6 gm/dl Albumin 4.1 gm/dl 3.7 gm/dl Lipase 96 U/L Bedside Hemoglobin 15.3 g/dl Bedside Hematocrit 45 % Bedside Sodium 141 mEq/L Bedside Potassium 4.1 mEq/L Bedside Chloride 101 mEq/L Bedside Total CO2 27 mEq/l Bedside Blood Urea Nitrogen 21 mg/dl Bedside Creatinine 1.3 mg/dl Bedside Glucose (other) 199 mg/dl Bedside Ionized Calcium (Courtney) 1.15 mmol/l Urine Color DK YELLOW Urine Appearance CLEAR Urine pH 5.0 Urine Specific [place] 1.023 Urine Protein TRACE Urine Glucose (UA) 1+ Urine Ketones NEG Urine Occult Blood TRACE Urine Nitrite NEG Urine Bilirubin 1+ Urine Urobilinogen POS Urine Leukocyte Esterase NEG Urine WBC (Auto) 1-5 /hpf Urine RBC (Auto) 0-4 /hpf Urine Hyaline Casts (Auto) 0 /lpf Urine Epithelial Cells (Auto) 5-10 /lpf Urine Bacteria (Auto) NEG ABDOMINAL ULTRASOUND, RIGHT UPPER QUADRANT HISTORY: Right upper quadrant pain. Possible common bile duct stone. COMPARISON: CT of the abdomen and pelvis February 18, 2018. FINDINGS: Liver morphology is normal. No hepatic lesions are evident. There is no biliary ductal dilatation. Common bile duct measures 4 mm in caliber. No common bile duct calculi are identified although the distal common bile duct is obscured. The pancreas is secured by overlying bowel gas. The gallbladder is filled with gallstones. Gallbladder wall is mildly thickened, measuring 4 mm. There is trace pericholecystic fluid. No sonographic Elam sign was elicited although pain medication was administered. There is no right hydronephrosis. IMPRESSION: 1. No biliary ductal dilatation. No common bile duct calculi identified although distal common bile duct obscured. 2. Gallbladder filled with gallstones with mild gallbladder wall thickening and trace pericholecystic fluid. The findings could reflect acute or chronic cholecystitis. A hepatobiliary scan could be obtained if suspicion for acute cholecystitis. Electronically signed by: Giuliano Coello M.D. 02/18/2018 6:47 AM Assessment & Plan cholelithiasis, acute cholecystitis, possible choledocholithiasis LFTs are trending down this morning. Will plan for laparoscopic cholecystectomy with cholangiogram this afternoon by Dr. Tello. Discussed with GI.
[2018-02-18] MEDS: PANTOprazole INJ 40 MG in SYRINGE 0 ML IV SCH (11:27)
[2018-02-18] MEDS ORDERED: ATROPINE SULFATE 0.1 MG/ML 5ML SYR IV PRN (12:00)
[2018-02-18] MEDS ORDERED: FENTANYL CITRATE INJ 50 MCG/1 ML 2 ML VIAL IV PRN (12:00)
[2018-02-18] MEDS ORDERED: EpHEDrine SULFATE INJ 50 MG/ML AMP IV PRN (12:00)
[2018-02-18] MEDS ORDERED: PROPOFOL IV EMULSION 10 MG/ML 20 ML VIAL ONE ×2 (12:04→14:15)
[2018-02-18] MEDS ORDERED: LIDOCAINE HCL 2% 2 ML VIAL (20MG/ML) ONE (12:05)
[2018-02-18] MEDS ORDERED: ROCURONIUM BROMIDE 10 MG/ML 5 ML VIAL ONE ×2 (12:05→13:08)
[2018-02-18] MEDS ORDERED: MIDAZOLAM HCL 1 MG/ML 2ML VIAL ONE (12:07)
[2018-02-18] MEDS ORDERED: FENTANYL CITRATE INJ 50 MCG/1 ML 2 ML VIAL ONE (12:08)
--- NOTE | 2018-02-18 12:19 | Gastrointestinal Consultation ---
Gastrointestinal Consultation Date of Consultation: Feb 18, 2018 Attending Physician: Maida Delong Consulting Physician: Elvis Riddle Reason for Consultation: Cholecystitis, Elevated LFTs History of Present Illness Patient is a 78 year old male who presnted to ED w/ c/o mid upper abd pain after eating dinner. Has associated n/v. Denies any hematemesis, coffee ground emesis. Denies any bowel habit changes including diarrhea. Upon evaluation his labs showed no leukocytosis, H/H stable. His LFTs were up: Tbili 2.5, AST 782, ALT 800, AP 134. Lipase 96. His CT abd/pelvis w contrast and gallbladder u/s showed gallstones w pericholecystic fluid, wall thickening. No biliary ductal dilation though distal CBD not well seen in u/s. CBD 4mm. Surgery consulted for cholecystitis. This AM his LFTs are improving. He is not having as much pain. No n/v. Been NPO for possible cholecystectomy. Past Medical/Surgical History Past Medical History: See above, allergic rhinitis, GERD, hemorrhoids, Afib, sick sinus syndrome, s/p pacemaker placement, BPH, CKD III, Hyperlipidemia. Past Surgical History: Lymph node bx, pacemaker placement, tonsillectomy, R shoulder surgery Family History Diabetes mellitus Social History Smoking Status: Never Smoker Alcohol Use: none Drug Use: none Marital Status: Housing Status: lives with family Occupation Status: retired Allergies Coded Allergies: BEE STING (Unverified Allergy, Unknown, HIVES, 02/18/18) Oxycodone (Unverified Adverse Reaction, Severe, URINE RETENTION, 02/18/18) Current Medications Home Meds and Scripts Medications Dose Route/Sig Max Daily Dose Days Date Category Prilosec (Omeprazole) 20 Mg Capcr 20 Mg PO QAM 11/06/17 Reported Metoclopramide Hcl 5 Mg Tab 1 Tab PO DAILY AFTERNOON 11/06/17 Reported Tiazac (Diltiazem HCl) 180 Mg Capcr 180 Mg PO QAM 11/06/17 Reported Lipitor (Atorvastatin Calcium) 20 Mg Tab 20 Mg PO HS 11/06/17 Reported Aspirin Ec (Aspirin) 81 Mg Tab 81 Mg PO QAM 05/25/16 Reported Review of Systems Constitutional: No fever, No chills Respiratory: No cough Cardiac: No chest pain Abdomen: + pain (improved), No nausea, No vomiting, No diarrhea Skin: No rash, No itch, No jaundice Physical Exam Date Time Temp Pulse Resp B/P (MAP) Pulse Ox O2 Delivery O2 Flow Rate FiO2 02/18/18 09:20 95 Room Air 02/18/18 07:30 36.5 62 18 166/88 (114) 95 Room Air 02/18/18 06:24 36.9 63 20 169/98 96 Room Air 02/18/18 04:37 65 20 148/90 98 Room Air 02/18/18 03:02 60 18 137/100 95 Room Air 02/18/18 01:45 36.7 65 18 178/81 95 Room Air General Appearance: WD/WN, no apparent distress Eyes: normal inspection, PERRL, EOMI Neck: supple, no JVD, trachea midline Respiratory/Chest: normal breath sounds, no respiratory distress, no accessory muscle use Cardiovascular: regular rate, rhythm, no gallop, no murmur Abdomen: normal bowel sounds, non tender, soft Extremities: normal inspection, no pedal edema, no calf tenderness Neurologic/Psych: alert, normal mood/affect, oriented x 3 Skin: normal color, no jaundice, no rash Laboratory Results Last 24 Hours Test 02/18/18 02:33 02/18/18 02:54 02/18/18 03:00 02/18/18 07:05 White Blood Count 5.40 K/uL 5.61 K/uL Red Blood Count 4.60 M/uL 4.44 M/uL Hemoglobin 15.4 g/dL 14.6 g/dL Hematocrit 42.8 % 41.2 % Mean Corpuscular Volume 93.0 fL 92.8 fL Mean Corpuscular Hemoglobin 33.5 pg 32.9 pg Mean Corpuscular Hemoglobin Concent 36.0 g/dl 35.4 g/dl Platelet Count 159 K/uL 161 K/uL Mean Platelet Volume 8.3 fL 7.8 fL Neutrophils (%) (Auto) 74.3 % 69.5 % Lymphocytes (%) (Auto) 15.9 % 20.9 % Monocytes (%) (Auto) 8.3 % 8.7 % Eosinophils (%) (Auto) 1.1 % 0.5 % Basophils (%) (Auto) 0.2 % 0.2 % Neutrophils # (Auto) 4.01 K/uL 3.90 K/uL Lymphocytes # (Auto) 0.86 K/uL 1.17 K/uL Monocytes # (Auto) 0.45 K/uL 0.49 K/uL Eosinophils # (Auto) 0.06 K/uL 0.03 K/uL Basophils # (Auto) 0.01 K/uL 0.01 K/uL RDW Standard Deviation 42.3 fL 42.5 fL RDW Coefficient of Variation 12.6 % 12.5 % Immature Granulocyte % (Auto) 0.2 % 0.2 % Immature Granulocyte # (Auto) 0.01 K/uL 0.01 K/uL Sodium Level 135 mmol/L Potassium Level 4.0 mmol/L Chloride Level 103 mmol/L Carbon Dioxide Level 26 mmol/L Anion Gap 6.0 mmol/L 18.0 mmol/L Blood Urea Nitrogen 21 mg/dl Creatinine 1.45 mg/dl Est Creatinine Clear Calc Drug Dose 44.5 ml/min Estimated GFR () 53.1 Estimated GFR (Non- 45.8 BUN/Creatinine Ratio 14.1 Random Glucose 186 mg/dl Calcium Level 8.9 mg/dl Total Bilirubin 2.5 mg/dl 1.6 mg/dl Direct Bilirubin 1.6 mg/dl 0.7 mg/dl Aspartate Amino Transf (AST/SGOT) 782 U/L 554 U/L Alanine Aminotransferase (ALT/SGPT) 806 U/L 752 U/L Alkaline Phosphatase 138 U/L 134 U/L Total Protein 8.3 gm/dl 7.6 gm/dl Albumin 4.1 gm/dl 3.7 gm/dl Lipase 96 U/L Bedside Hemoglobin 15.3 g/dl Bedside Hematocrit 45 % Bedside Sodium 141 mEq/L Bedside Potassium 4.1 mEq/L Bedside Chloride 101 mEq/L Bedside Total CO2 27 mEq/l Bedside Blood Urea Nitrogen 21 mg/dl Bedside Creatinine 1.3 mg/dl Bedside Glucose (other) 199 mg/dl Bedside Ionized Calcium (Courtney) 1.15 mmol/l Urine Color DK YELLOW Urine Appearance CLEAR Urine pH 5.0 Urine Specific [place] 1.023 Urine Protein TRACE Urine Glucose (UA) 1+ Urine Ketones NEG Urine Occult Blood TRACE Urine Nitrite NEG Urine Bilirubin 1+ Urine Urobilinogen POS Urine Leukocyte Esterase NEG Urine WBC (Auto) 1-5 /hpf Urine RBC (Auto) 0-4 /hpf Urine Hyaline Casts (Auto) 0 /lpf Urine Epithelial Cells (Auto) 5-10 /lpf Urine Bacteria (Auto) NEG Impression Patient is a 78 year old male presented with n/v, mid upper abd pain after eating dinner last night. Labs notable for increased LFTs, CT abd/pelvis w contrast and gallbladder u/s indicative of cholecystitis w gallstones present. CBD w/o obvious dilation, measuring 4mm. LFTs are trending down this AM. Plan - Keep NPO - Continue antibx coverage for cholecystitis - Trend LFTs - Discussed case with Dr. Tello: less likely he has choledocholithiasis given LFTs trending down, no jaki biliary dilation and pt pain w improvement. He may have passed a gallstone when initially came in. No definite indication for urgent ERCP. Agree with lap cholecystectomy with intraop cholangiogram, and if any filling defect is noted, then we will re-evaluate for possible ERCP for choledocholithiasis removal. Attending attestation I have seen, examined this patient, and agree with the findings and above by our mid-level provider Arvin Lara. -No abdominal pain today, soft abdomen. Going for Evelyn today, likely not an MRI candidate given pacer -Given CT, US, and Labs, low probability of CBD stones, however, if has one on IOC then will plan on ERCP
[2018-02-18] MEDS ORDERED: BUPIVACAINE 0.5 % 5 MG/1 ML PF 10ML VIAL ONE (12:48)
[2018-02-18] MEDS ORDERED: CONRAY 60% 50 ML VIAL ONE (12:49)
[2018-02-18] MEDS ORDERED: DEXAMETHASONE SOD INJ 4 MG/ML VIAL ONE (13:08)
[2018-02-18] MEDS ORDERED: ONDANSETRON INJ 2 MG/ML 2 ML VIAL ONE (13:08)
--- NOTE | 2018-02-18 14:10 | DIAGNOSTIC IMAGING REPORT ---
INTRAOPERATIVE CHOLANGIOGRAM HISTORY: Post cholecystectomy. FLUOROSCOPY TIME: 27 seconds. 3 fluoroscopic spot images of the right upper quadrant. FINDINGS: Fluoroscopy was provided for an intraoperative cholangiogram status post cholecystectomy. Contrast was injected through the cystic duct remnant. The common bile duct is normal in course and caliber. There are no filling defects seen within the common bile duct to suggest a retained stone. Contrast extends into the small bowel. There is no intrahepatic bile duct dilatation. IMPRESSION: Fluoroscopy provided for an intraoperative cholangiogram status post cholecystectomy. No filling defects within the common bile duct. Electronically signed by: Jaswinder Irving M.D. 02/18/2018 2:09 PM Dictated Date/Time: 02/18/2018 2:09 PM
[2018-02-18] MEDS ORDERED: NEOSTIGMINE METHYLSULFATE 5 MG/5 ML SYR ONE (14:11)
[2018-02-18] MEDS ORDERED: GLYCOPYRROLATE INJ 0.2 MG/ML VIAL ONE (14:11)
--- NOTE | 2018-02-18 14:31 | [facility] Post Operative Brief Note ---
Immediate Operative Summary Operative Date Feb 18, 2018. Pre-Operative Diagnosis cholelithiasis, acute cholecystitis, possible choledocholithiasis Post-Operative Diagnosis cholelithiasis, acute cholecystitis Procedure(s) Performed Laparoscopic Cholecystectomy with Cholangiogram Surgeon Dr. Almas Tello Band Aid Machine Operator Surgeon(s) Filipe Gifford Pa-c Estimated Blood Loss 7 ml Findings Consistent with Post-Op Diagnosis normal IOC, window of safety obtained Specimens A: Gallbladder and contents Drains None Anesthesia Type General Complication(s) none Disposition Accompanied Pt To Recover: no Disposition: Recovery Room / PACU
--- NOTE | 2018-02-18 14:39 | [facility] Operative Report ---
Operative Report Operative Date Feb 18, 2018. Pre-Operative Diagnosis cholelithiasis, acute cholecystitis, possible choledocholithiasis Post-Operative Diagnosis Cholelithiasis, acute cholecystitis Procedure(s) Performed Laparoscopic cholecystectomy with cholangiogram Surgeon Dr. Almas Tello Electrician'S Assistant Surgeon(s) Filipe Gifford Pa-c Estimated Blood Loss 7 ml Findings Critical view of safety obtained. Cholangiogram normal. Specimens A: Gallbladder and contents Drains None Anesthesia General Complication(s) None Disposition Recovery Room / PACU Indications 78-year-old male admitted with acute cholecystitis and concern for choledocholithiasis. After discussion with GI, plan for laparoscopic cholecystectomy with possible cholangiogram. The risks of the procedure were discussed, all questions were answered, and the patient agreed to proceed with surgery as planned. Description of Procedure The patient was properly identified, consented, and taken to the operating room where he was placed in the supine position. General endotracheal anesthesia was induced. SCDs and a safety belt were placed. Preoperative antibiotics were administered. The patient's abdomen was prepped and draped in the standard sterile fashion. A surgical timeout was performed and all parties were in agreement that this was the correct patient and procedure to be performed and we continued as planned. An incision was made superior and to the left of the umbilicus overlying the rectus muscle and the Veress needle was inserted. Saline drop test confirmed entry into the peritoneum. The abdomen was insufflated with carbon dioxide which the patient tolerated without incident. The abdomen was then entered using the Optiview technique and a 5 mm trocar. The laparoscope was inserted and no damage from initial trocar or Veress needle placement was noted, no gross abnormalities were noted within the 4 quadrants of the abdomen. An 11 mm port was placed in the subxiphoid position and two 5 mm ports were then placed in the right subcostal position. The patient was placed in reverse Trendelenburg position and rotated towards the left. The gallbladder was acutely inflamed. The dome of the gallbladder was retracted towards the left upper quadrant and the infundibulum was retracted toward the right lower quadrant revealing Calot's triangle. Peritoneal attachments were taken down with electrocautery and blunt dissection. The cystic duct and artery were circumferentially dissected. A window of safety was obtained showing the cystic duct entering the gallbladder with no aberrant structures noted. The Carlos cholangiocatheter was then used to perform an intraoperative cholangiogram which showed no filling defects, and good filling of the duodenum and hepatic radicals with contrast. The cystic duct and artery were doubly clipped and divided. The gallbladder was then lifted off the gallbladder fossa with electrocautery. The gallbladder was placed in an Endo Catch bag and removed through the subxiphoid port site. The right upper quadrant was irrigated and hemostasis was found to be good. 5 mm trochars were removed under direct visualization and the abdomen was allowed to collapse. The subxiphoid port site fascia was closed with 0 Vicryl suture. The wound was irrigated, and the skin of all ports was closed with 4-0 Monocryl subcuticular sutures. Dermabond was placed over the wounds. The patient was extubated in the operating room and taken to the PACU where he recovered without apparent incident. All sponge, instrument and needle counts were correct at the conclusion of the procedure. The patient tolerated the procedure well. The physician's assistant professor of criminal justice was present and scrubbed for the entirety of the case and was essential in positioning the patient, prepping and draping, retraction and exposure, driving the laparoscope, removal of the gallbladder, closure the incisions, and placement of the dressings. I attest to the content of the Intraoperative Record and any orders documented therein. Any exceptions are noted below.
[2018-02-18] MEDS ORDERED: HYDROCODONE/ACETAMIN 5/325MG TAB PO PRN (14:45)
--- NOTE | 2018-02-18 15:23 | Anesthesiology Progress Note ---
Anesthesia Post Op Note Date & Time Feb 18, 2018 at 15:23 Vital Signs Pain Intensity: 2 Vital Signs Past 12 Hours Date Time Temp Pulse Resp B/P (MAP) Pulse Ox O2 Delivery O2 Flow Rate FiO2 02/18/18 15:14 36.6 95 Nasal Cannula 4 02/18/18 15:11 125/66 02/18/18 15:08 61 14 94 02/18/18 15:08 61 14 02/18/18 15:06 123/70 02/18/18 15:03 62 14 02/18/18 15:03 61 14 94 02/18/18 15:02 62 18 02/18/18 15:02 62 18 96 02/18/18 15:00 138/72 02/18/18 14:57 63 21 02/18/18 14:57 63 21 94 02/18/18 14:56 121/72 02/18/18 14:54 74 20 02/18/18 14:54 73 20 97 02/18/18 14:50 136/64 02/18/18 14:49 79 17 02/18/18 14:49 79 17 100 02/18/18 14:46 112/72 02/18/18 14:44 66 16 02/18/18 14:44 67 16 100 02/18/18 14:41 145/78 02/18/18 14:39 36.0 60 16 148/78 98 Oxymask 10 02/18/18 14:39 61 16 148/78 100 02/18/18 14:39 61 16 02/18/18 09:20 95 Room Air 02/18/18 08:10 Room Air 02/18/18 07:30 36.5 62 18 166/88 (114) 95 Room Air 02/18/18 06:24 36.9 63 20 169/98 96 Room Air 02/18/18 04:37 65 20 148/90 98 Room Air Notes Mental Status: alert / awake / arousable, participated in evaluation Pt Amnestic to Procedure: Yes Nausea / Vomiting: adequately controlled Pain: adequately controlled Airway Patency, RR, SpO2: stable & adequate BP & HR: stable & adequate Hydration State: stable & adequate Anesthetic Complications: no major complications apparent
[2018-02-18] MEDS: ACETAMINOPHEN 325 MG TAB PO PRN (23:51)
[2018-02-19 03:42] VITALS: BP 125/64; PULSE 62; TEMP 36.7; O2SAT 92
[2018-02-19] MEDS: D5W AND NSS 1,000 ML IV SCH (05:22)
[2018-02-19] MEDS: ACETAMINOPHEN 325 MG TAB PO PRN (05:23)
--- NOTE | 2018-02-19 06:44 | Surgery Progress Note ---
Surgery Progress Note Date of Service Feb 19, 2018. Subjective + feeling well, + pain controlled, + diet (Tolerating regular diet), No complaints, No bowel movement, No flatus, No nausea, No vomiting Objective Vital Signs: Date Time Temp Pulse Resp B/P (MAP) Pulse Ox O2 Delivery O2 Flow Rate FiO2 02/19/18 03:42 36.7 62 16 125/64 (84) 92 Room Air 02/18/18 23:57 Room Air 02/18/18 23:20 36.5 60 20 127/56 (79) 94 Room Air 02/18/18 18:47 36.7 60 17 153/74 (100) 94 Room Air 02/18/18 17:30 36.9 60 16 154/78 (103) 93 Room Air 02/18/18 16:38 36.8 63 17 157/78 (104) 98 Nasal Cannula 2.0 02/18/18 16:01 60 18 151/87 (108) 96 Nasal Cannula 2.0 02/18/18 15:30 36.7 61 18 138/75 (96) 96 Nasal Cannula 4.0 02/18/18 15:30 96 Nasal Cannula 4.0 02/18/18 15:30 96 Nasal Cannula 4.0 02/18/18 15:22 60 18 02/18/18 15:22 60 18 97 02/18/18 15:21 126/66 02/18/18 15:17 60 16 95 02/18/18 15:17 61 16 02/18/18 15:16 130/65 02/18/18 15:14 36.6 95 Nasal Cannula 4 02/18/18 15:12 63 23 02/18/18 15:12 62 23 95 02/18/18 15:11 125/66 02/18/18 15:08 61 14 94 02/18/18 15:08 61 14 02/18/18 15:06 123/70 02/18/18 15:03 62 14 02/18/18 15:03 61 14 94 02/18/18 15:02 62 18 02/18/18 15:02 62 18 96 02/18/18 15:00 138/72 02/18/18 14:57 63 21 02/18/18 14:57 63 21 94 02/18/18 14:56 121/72 02/18/18 14:54 74 20 02/18/18 14:54 73 20 97 02/18/18 14:50 136/64 02/18/18 14:49 79 17 02/18/18 14:49 79 17 100 02/18/18 14:46 112/72 02/18/18 14:44 66 16 02/18/18 14:44 67 16 100 02/18/18 14:41 145/78 02/18/18 14:39 36.0 60 16 148/78 98 Oxymask 10 02/18/18 14:39 61 16 148/78 100 02/18/18 14:39 61 16 02/18/18 09:20 95 Room Air 02/18/18 08:10 Room Air 02/18/18 07:30 36.5 62 18 166/88 (114) 95 Room Air General Appearance: WD/WN, no apparent distress Head: normocephalic, atraumatic Respiratory/Chest: no respiratory distress Abdomen: soft, no organomegaly, + distended (mild), + tenderness (incisional) Incision(s): clean, dry, intact, no erythema, no drainage Laboratory Results: Results Past 24 Hours Test 02/18/18 07:05 02/19/18 06:05 Range/Units White Blood Count 5.61 4.8-10.8 K/uL Red Blood Count 4.44 4.7-6.1 M/uL Hemoglobin 14.6 14.0-18.0 g/dL Hematocrit 41.2 42-52 % Mean Corpuscular Volume 92.8 80-100 fL Mean Corpuscular Hemoglobin 32.9 25-34 pg Mean Corpuscular Hemoglobin Concent 35.4 32-36 g/dl Platelet Count 161 130-400 K/uL Mean Platelet Volume 7.8 7.4-10.4 fL Neutrophils (%) (Auto) 69.5 % Lymphocytes (%) (Auto) 20.9 % Monocytes (%) (Auto) 8.7 % Eosinophils (%) (Auto) 0.5 % Basophils (%) (Auto) 0.2 % Neutrophils # (Auto) 3.90 1.4-6.5 K/uL Lymphocytes # (Auto) 1.17 1.2-3.4 K/uL Monocytes # (Auto) 0.49 0.11-0.59 K/uL Eosinophils # (Auto) 0.03 0-0.5 K/uL Basophils # (Auto) 0.01 0-0.2 K/uL RDW Standard Deviation 42.5 36.4-46.3 fL RDW Coefficient of Variation 12.5 11.5-14.5 % Immature Granulocyte % (Auto) 0.2 % Immature Granulocyte # (Auto) 0.01 0.00-0.02 K/uL Total Bilirubin 1.6 0.2-1 mg/dl Direct Bilirubin 0.7 0-0.2 mg/dl Aspartate Amino Transf (AST/SGOT) 554 15-37 U/L Alanine Aminotransferase (ALT/SGPT) 752 12-78 U/L Alkaline Phosphatase 134 45-117 U/L Total Protein 7.6 6.4-8.2 gm/dl Albumin 3.7 3.4-5.0 gm/dl Assessment & Plan POD #1 s/p lap jaime w/ IOC Abdomen soft, mildly distended, incisional TTP (expected). Incisions c/d/i. Tolerating regular diet, no N/V. Urinating okay. Cholangiogram reviewed - no filling defects appreciated. Am Labs pending - monitor LFTs. Possible d/c today if he continues to do well Contact with questions or concerns.
[2018-02-19 06:48] LABS: HEMOGLOBIN 13.6 g/dL (14.0-18.0); IG# 0.02 K/uL (0.00-0.02); LYMPH % 7.6 %; LYMPH ABS # 0.82 K/uL (1.2-3.4); MEAN CELL VOLUME 94.5 fL (80-100); MEAN CORPUSCULAR HEMOGLOBIN 33.8 pg (25-34); MEAN CORPUSCULAR HGB CONC 35.8 g/dl (32-36); MEAN PLATELET VOLUME 8.5 fL (7.4-10.4); MONO % 8.2 %; MONO ABS # 0.89 K/uL (0.11-0.59); NEUT ABS # 9.08 K/uL (1.4-6.5); PLATELET COUNT 158 K/uL (130-400); RED CELL DISTRIBUTION WIDTH CV 12.8 % (11.5-14.5); WHITE BLOOD COUNT 10.81 K/uL (4.8-10.8)
[2018-02-19 07:07] VITALS: BP 147/74; PULSE 60; TEMP 36.8; O2SAT 95
[2018-02-19] MEDS: METRONIDAZOLE / NSS 500 MG in PREMIXED NSS 100 ML IV SCH (07:19)
[2018-02-19 07:35] LABS: ALBUMIN 3.2 gm/dl (3.4-5.0); CALCIUM 8.5 mg/dl (8.5-10.1); CREATININE 1.21 mg/dl (0.60-1.40); POTASSIUM 3.9 mmol/L (3.5-5.1); TOTAL PROTEIN 6.6 gm/dl (6.4-8.2)
--- NOTE | 2018-02-19 08:16 | Progress Note ---
Progress Note Date of Service Feb 19, 2018. (Felisha Young CRNP) Progress Note GI short note: Pt underwent lap cholecystectomy yesterday, intraop cholangiogram w/o filling defect. This AM LFTs are trending down. No plans for ERCP or other GI intervention. Please call if new questions/concerns arise. (Felisha Young, JESSICA)
[2018-02-19] MEDS: CIPROFLOXACIN / D5W 400 MG in PREMIXED IN D5W 200 ML IV SCH (08:30)
[2018-02-19] MEDS: DILTIAZEM HCL (TIAzac) 180 MG CAPCR PO SCH (08:31)
[2018-02-19] MEDS: PANTOprazole INJ 40 MG in SYRINGE 0 ML IV SCH (11:08)
--- NOTE | 2018-02-19 11:23 | Progress Note ---
Internal Med Progress Note Date of Service: Feb 18, 2018. Provider Documentation: SUBJECTIVE: The patient was seen and examined in medical floor He was admitted yesterday with acute cholecystitis with possible common bile duct stone Feels a little better with less pain, no fever and no nausea or vomiting Likely to have surgery today/tomorrow 02/19: Status post lap jaime yesterday Symptomatically much better and tolerating regular diet Denies any symptoms and wants to go home Advised more ambulation OBJECTIVE: Vital Signs-as noted below Exam: General-no apparent distress at rest Minimal epigastric discomfort Eyes-normal ENT-normal Neck-supple Lungs-clear to auscultate bilaterally Heart-regular Abdomen-mildly distended, soft, tender in the epigastrium with some epigastric fullness Elam sign negative and no rebound tenderness Extremities-negative for any edema Neuro-alert, awake and oriented 3 No focal neuro deficit Lab data as noted below. ASSESSMENT & PLAN: This 78-year-old male presents with abdominal pain. Acute Cholecystitis; status post lap jaime on 02/18/18 Presented with Abdominal pain and N/V. US GB:: 1. No biliary ductal dilatation. No common bile duct calculi identified although distal common bile duct obscured. 2. Gallbladder filled with gallstones with mild gallbladder wall thickening and trace pericholecystic fluid. The findings could reflect acute or chronic cholecystitis. A hepatobiliary scan could be obtained if suspicion for acute cholecystitis. CT of the Abdomen::1. Cholelithiasis with suspected mild gallbladder wall thickening and trace pericholecystic infiltration. The findings raise the possibility of acute cholecystitis and a hepatobiliary scan could be obtained as indicated. 2. No biliary ductal dilatation. 3. Small hiatal hernia. 4. Normal appendix. No bowel obstruction. Has been on IVF and IV antibiotics Appreciate Surgery and GI input Clinically better with improvement of LFTs Feeling a lot better following lap jaime Tolerating diet Advised ambulation and likely to be discharged this afternoon May need antibiotic on discharge History of atrial fibrillation, rate controlled with Cardizem. No anticoagulation because of history of GI bleed in the past Sick sinus syndrome, status post pacemaker. Aspirin is on Hold EKG-paced rhythm ECHO in 2016-Normal LVF No contraindication to proposed Surgery No acute symptoms History of gastroparesis, on Reglan and Prilosec. Currently, hold Reglan, place him IV Protonix. No symptoms from gastroparesis Hyperlipidemia, on statin. Chronic kidney disease stage III, Monitor Deep venous thrombosis prophylaxis, SCDs for now. Level 1 full code. DISPOSITION Discharge this afternoon Vital Signs: Date Time Temp Pulse Resp B/P (MAP) Pulse Ox O2 Delivery O2 Flow Rate FiO2 02/19/18 07:15 Room Air 02/19/18 07:07 36.8 60 17 147/74 (98) 95 Room Air 02/19/18 03:42 36.7 62 16 125/64 (84) 92 Room Air 02/18/18 23:57 Room Air 02/18/18 23:20 36.5 60 20 127/56 (79) 94 Room Air 02/18/18 18:47 36.7 60 17 153/74 (100) 94 Room Air 02/18/18 17:30 36.9 60 16 154/78 (103) 93 Room Air 02/18/18 16:38 36.8 63 17 157/78 (104) 98 Nasal Cannula 2.0 02/18/18 16:01 60 18 151/87 (108) 96 Nasal Cannula 2.0 02/18/18 15:30 36.7 61 18 138/75 (96) 96 Nasal Cannula 4.0 02/18/18 15:30 96 Nasal Cannula 4.0 02/18/18 15:30 96 Nasal Cannula 4.0 02/18/18 15:22 60 18 02/18/18 15:22 60 18 97 02/18/18 15:21 126/66 02/18/18 15:17 60 16 95 02/18/18 15:17 61 16 02/18/18 15:16 130/65 02/18/18 15:14 36.6 95 Nasal Cannula 4 02/18/18 15:12 63 23 02/18/18 15:12 62 23 95 02/18/18 15:11 125/66 02/18/18 15:08 61 14 94 02/18/18 15:08 61 14 02/18/18 15:06 123/70 02/18/18 15:03 62 14 02/18/18 15:03 61 14 94 02/18/18 15:02 62 18 02/18/18 15:02 62 18 96 02/18/18 15:00 138/72 02/18/18 14:57 63 21 02/18/18 14:57 63 21 94 02/18/18 14:56 121/72 02/18/18 14:54 74 20 02/18/18 14:54 73 20 97 02/18/18 14:50 136/64 02/18/18 14:49 79 17 02/18/18 14:49 79 17 100 02/18/18 14:46 112/72 02/18/18 14:44 66 16 02/18/18 14:44 67 16 100 02/18/18 14:41 145/78 02/18/18 14:39 36.0 60 16 148/78 98 Oxymask 10 02/18/18 14:39 61 16 148/78 100 02/18/18 14:39 61 16 Lab Results: Results Past 24 Hours Test 02/19/18 06:05 Range/Units White Blood Count 10.81 4.8-10.8 K/uL Red Blood Count 4.02 4.7-6.1 M/uL Hemoglobin 13.6 14.0-18.0 g/dL Hematocrit 38.0 42-52 % Mean Corpuscular Volume 94.5 80-100 fL Mean Corpuscular Hemoglobin 33.8 25-34 pg Mean Corpuscular Hemoglobin Concent 35.8 32-36 g/dl Platelet Count 158 130-400 K/uL Mean Platelet Volume 8.5 7.4-10.4 fL Neutrophils (%) (Auto) 84.0 % Lymphocytes (%) (Auto) 7.6 % Monocytes (%) (Auto) 8.2 % Eosinophils (%) (Auto) 0.0 % Basophils (%) (Auto) 0.0 % Neutrophils # (Auto) 9.08 1.4-6.5 K/uL Lymphocytes # (Auto) 0.82 1.2-3.4 K/uL Monocytes # (Auto) 0.89 0.11-0.59 K/uL Eosinophils # (Auto) 0.00 0-0.5 K/uL Basophils # (Auto) 0.00 0-0.2 K/uL RDW Standard Deviation 44.0 36.4-46.3 fL RDW Coefficient of Variation 12.8 11.5-14.5 % Immature Granulocyte % (Auto) 0.2 % Immature Granulocyte # (Auto) 0.02 0.00-0.02 K/uL Sodium Level 139 136-145 mmol/L Potassium Level 3.9 3.5-5.1 mmol/L Chloride Level 106 98-107 mmol/L Carbon Dioxide Level 23 21-32 mmol/L Anion Gap 10.0 3-11 mmol/L Blood Urea Nitrogen 16 7-18 mg/dl Creatinine 1.21 0.60-1.40 mg/dl Est Creatinine Clear Calc Drug Dose 53.4 ml/min Estimated GFR () 66.1 Estimated GFR (Non- 57.0 BUN/Creatinine Ratio 12.9 10-20 Random Glucose 187 70-99 mg/dl Calcium Level 8.5 8.5-10.1 mg/dl Magnesium Level 2.0 1.8-2.4 mg/dl Total Bilirubin 0.6 0.2-1 mg/dl Direct Bilirubin 0.2 0-0.2 mg/dl Aspartate Amino Transf (AST/SGOT) 159 15-37 U/L Alanine Aminotransferase (ALT/SGPT) 468 12-78 U/L Alkaline Phosphatase 103 45-117 U/L Total Protein 6.6 6.4-8.2 gm/dl Albumin 3.2 3.4-5.0 gm/dl
--- NOTE | 2018-02-19 13:43 | Discharge Instructions ---
Discharge Instructions Date of Service Feb 19, 2018. Admission Reason for Admission: Cholecystitis, Elevated Lft's Discharge Discharge Diagnosis / Problem: Acute Cholecystitis s/p Lap Evelyn Discharge Goals Goal(s): Prevent Disease Progression Activity Recommendations Activity Limitations: resume your previous activity (Take it easy for the next few days) . Instructions / Follow-Up Instructions / Follow-Up DR Jean-Baptiste on 11/26/17 at 9:25 AM (Dr Coppola is away).Keep appointment with the Surgeon Current Hospital Diet Patient's current hospital diet: Regular Diet Discharge Diet Recommended Diet: Regular Diet, Low Fat Diet Procedures Procedures Performed: Laparoscopic Cholecystectomy with Cholangiogram Pending Studies Studies pending at discharge: no Medical Emergencies . Who to Call and When: Medical Emergencies: If at any time you feel your situation is an emergency, please call 911 immediately. . Non-Emergent Contact Non-Emergency issues call your: Primary Care Provider . Past History Medical & Surgical History: (1) S/P cholecystectomy (2) Paroxysmal a-fib (3) Cholecystitis (4) Gastroparesis (5) SSS (sick sinus syndrome) (6) CKD (chronic kidney disease) stage 3, GFR 30-59 ml/min (7) Laceration of hand, right . "Provider Documentation" section prepared by Maida Delong. .
[2018-02-19 14:08] VITALS: BP 147/74; PULSE 60; TEMP 36.8; O2SAT 95
--- NOTE | 2018-02-24 11:35 | Discharge Summary ---
Discharge Summary Date of Service Feb 24, 2018. Discharge Summary Admission Date: Feb 18, 2018 at 05:27 Discharge Date: Feb 19, 2018 Discharge Disposition: Home Principal Diagnosis: Acute Cholecystitis s/p Lap Evelyn Secondary Diagnoses/Problems: Please see H&P and Hospital progress note Consultations: Surgery and GI Medication Reconciliation Continued Medications: Aspirin (Aspirin Ec) 81 Mg Tab 81 MG PO QAM Atorvastatin (Lipitor) 20 Mg Tab 20 MG PO HS, TAB Diltiazem Hcl Ext Rel (Tiazac) 180 Mg Capcr 180 MG PO QAM, CAP Metoclopramide Hcl (Metoclopramide Hcl) 5 Mg Tab 1 TAB PO DAILY AFTERNOON Omeprazole (Prilosec) 20 Mg Capcr 20 MG PO QAM, CAP Admission Information HPI (per Admitting provider): DATE OF ADMISSION: 02/18/2018 CHIEF COMPLAINT: Abdominal pain. HISTORY OF PRESENT ILLNESS: This 78-year-old male with past medical history significant for allergic rhinitis, GERD, hemorrhoids, paroxysmal atrial fibrillation, sick sinus syndrome, status post pacemaker, diastolic dysfunction, BPH, chronic kidney disease stage 3, hyperlipidemia who presents with abdominal pain. The patient has a history of esophageal gastroparesis and he takes omeprazole and Reglan, but last night after eating his dinner, went to sleep and noticed belly pain in the periumbilical region. He thought it will go away, but it progressively got worse about 9/10 in severity, no radiation, associated with nausea and vomiting, which prompted to come to the ER. In the ER, CAT scan was done which shows cholecystitis and also elevated LFTs. Currently after some pain medication, the patient says his pain is about 2/10 in severity, resting comfortable and hemodynamically stable.Says he felt hot, but he was afebrile in the ER, he has chronically irregular bowel movements, but denies any blood in the stools. Normal bladder movements. No blood in the urine. Has mild headaches. No blurred visions. Recently had cataract surgery. Hard to hear. No earaches. No runny nose, no sore throat, no difficulty swallowing. No chest pain, no shortness of breath, no cough. Otherwise, he is very active. He is a [place]ri[place] and always active with no issues with walking or climbing steps. ALLERGIES: BEE STING, OXYCODONE. PAST MEDICAL HISTORY: As mentioned above. PAST SURGICAL HISTORY: Colonoscopy, lymph node biopsy, pacemaker placement, tonsillectomy, right shoulder surgery. MEDICATIONS: The patient is on aspirin 81 mg p.o. daily, Lipitor 20 mg p.o. daily, Reglan 5 mg as needed, omeprazole 20 mg p.o. daily, diltiazem extended release 180 mg p.o. daily. FAMILY HISTORY: Significant for father who had a stroke. Brother has diabetes. Sister had VA at age of 40. SOCIAL HISTORY: . No smoking history. No alcohol, no drug use. Lives with his . REVIEW OF SYMPTOMS: As per HPI. Rest of the symptoms negative. PHYSICAL EXAMINATION: GENERAL: The patient is of moderate build, not in distress. VITAL SIGNS: Temperature 36.7, pulse 65, respiratory rate 20, blood pressure 148/90, oxygen 98% room air. HEENT: No pallor, no icterus. Pupils equal, round, and react to light. NECK: No JVD, no neck masses, no carotid bruits. CARDIOVASCULAR: S1, S2 heard, regular rate and rhythm, no murmur, no gallop. RESPIRATORY SYSTEM: Clear to auscultation bilaterally. No wheezing, no crackles. ABDOMEN: Soft, bowel sounds present. Mild tenderness in the periumbilical region. No guarding, no rigidity. No distention. CENTRAL NERVOUS SYSTEM: Cranial nerves are grossly intact. Nonfocal. EXTREMITIES: No edema, no erythema. LABORATORIES: Sodium 135, potassium 4, chloride 103, bicarbonate 26, BUN 21, creatinine 1.4, serum glucose 186, calcium 8.9, total bilirubin 2.5, direct bilirubin 1.6, AST 182, ALT 806, alkaline phosphatase is 138, lipase 96. WBC 5.4, hemoglobin 15.4, hematocrit 42.8, platelets 159. Urinalysis, trace occult blood. CT of abdomen and pelvis unofficial report cholecystitis. ASSESSMENT AND PLAN: This 78-year-old male presents with abdominal pain. 1. Abdominal pain. CAT scan showing cholecystitis and also has elevated LFTs.Possible common bile duct stone. We will get an ultrasound of the gallbladder. Empirically start him on IV Cipro and IV Flagyl, IV fluids, IV antiemetics and pain medications p.r.n. Hemodynamically stable. Consult GI and surgery. MRCP, ERCP as per GI. Follow the LFTs. 2. History of atrial fibrillation, rate controlled with Cardizem. Not on anticoagulation because of history of GI bleed in the past and patient preference as per records.Takes baby aspirin which will be held for possible procedures. We will monitor his heart rate. 3. History of gastroparesis, on Reglan and Prilosec. Currently, hold Reglan, place him IV Protonix. 4. Hyperlipidemia, on statin. 5. Sick sinus syndrome, status post pacemaker. 6. LATASHA on Chronic kidney disease stage III, baseline creatinine of 1.2 to 1.3. Presented with 1.4. We will follow the labs. 7. Deep venous thrombosis prophylaxis, SCDs for now. 8. Disposition: Admit to medical floor. Expect to discharge home and follow with family doctor. Level 1 full code. Dictated: 02/18/18 0534 Transcribed: 02/18/18 0712 <Electronically signed by Jovon Henderson MD> Signed: 02/18/18 1355 ES Jovon Henderson MD Hospital Course This 78-year-old male presents with abdominal pain. Acute Cholecystitis; status post lap evelyn on 02/18/18 Presented with Abdominal pain and N/V. US GB:: 1. No biliary ductal dilatation. No common bile duct calculi identified although distal common bile duct obscured. 2. Gallbladder filled with gallstones with mild gallbladder wall thickening and trace pericholecystic fluid. The findings could reflect acute or chronic cholecystitis. A hepatobiliary scan could be obtained if suspicion for acute cholecystitis. CT of the Abdomen::1. Cholelithiasis with suspected mild gallbladder wall thickening and trace pericholecystic infiltration. The findings raise the possibility of acute cholecystitis and a hepatobiliary scan could be obtained as indicated. 2. No biliary ductal dilatation. 3. Small hiatal hernia. 4. Normal appendix. No bowel obstruction. Has been on IVF and IV antibiotics Appreciate Surgery and GI input Clinically better with improvement of LFTs Feeling a lot better following lap evelyn Tolerating diet Advised ambulation and likely to be discharged this afternoon May need antibiotic on discharge History of atrial fibrillation, rate controlled with Cardizem. No anticoagulation because of history of GI bleed in the past Sick sinus syndrome, status post pacemaker. Aspirin is on Hold EKG-paced rhythm ECHO in 2016-Normal LVF No contraindication to proposed Surgery No acute symptoms History of gastroparesis, on Reglan and Prilosec. Currently, hold Reglan, place him IV Protonix. No symptoms from gastroparesis Hyperlipidemia, on statin. Chronic kidney disease stage III, Monitor Deep venous thrombosis prophylaxis, SCDs for now. Level 1 full code. DISPOSITION Discharge this afternoon Total time spent on discharge = 35 minutes This includes examination of the patient, discharge planning, medication reconciliation, and communication with other providers. Discharge Instructions Date of Service Feb 19, 2018. Admission Reason for Admission: Cholecystitis, Elevated Lft's Discharge Discharge Diagnosis / Problem: Acute Cholecystitis s/p Lap Evelyn Discharge Goals Goal(s): Prevent Disease Progression Activity Recommendations Activity Limitations: resume your previous activity (Take it easy for the next few days) . Instructions / Follow-Up Instructions / Follow-Up DR Jean-Baptiste on 11/26/17 at 9:25 AM (Dr Coppola is away).Keep appointment with the Surgeon Current Hospital Diet Patient's current hospital diet: Regular Diet Discharge Diet Recommended Diet: Regular Diet, Low Fat Diet Procedures Procedures Performed: Laparoscopic Cholecystectomy with Cholangiogram Pending Studies Studies pending at discharge: no Medical Emergencies . Who to Call and When: Medical Emergencies: If at any time you feel your situation is an emergency, please call 911 immediately. . Non-Emergent Contact Non-Emergency issues call your: Primary Care Provider . Past History Medical & Surgical History: (1) S/P cholecystectomy (2) Paroxysmal a-fib (3) Cholecystitis (4) Gastroparesis (5) SSS (sick sinus syndrome) (6) CKD (chronic kidney disease) stage 3, GFR 30-59 ml/min (7) Laceration of hand, right . "Provider Documentation" section prepared by Maida Delong. . <Electronically signed by Maida Delong M.D.> Signed: 02/19/18 [id number] Signed: Additional Copies To Lance Coppola M.D.
== END 2018-02-19 14:48 | disposition home or self-care (01) | DRG 418 ==
LOC: C.EDB 01:43 → C.MSN 05:27 → ENRESERV 05:39
PROVIDERS: ADMIT Internal Medicine; ATTEND Internal Medicine
PROC: 0FT44ZZ Resection of Gallbladder, Percutaneous Endoscopic Approach (ICD-10-PCS; principal; 2018-02-18 13:10)
DX: K80.00 Calculus of gallbladder with acute cholecystitis without obstruction (principal); N17.9 Acute kidney failure, unspecified; N18.3 Chronic kidney disease, stage 3 (moderate); K21.9 Gastro-esophageal reflux disease without esophagitis; I48.0 Paroxysmal atrial fibrillation; I49.5 Sick sinus syndrome; N40.0 Benign prostatic hyperplasia without lower urinary tract symptoms; E78.5 Hyperlipidemia, unspecified; Z79.82 Long term (current) use of aspirin; Z79.899 Other long term (current) drug therapy; Z95.0 Presence of cardiac pacemaker